=== PATIENT | male | born 1980 | race Two or more races ===

== ENCOUNTER 2024-01-21 07:55 | Outpatient (AMB) | payer OTHER, SELFPAY ==
--- NOTE | 2024-01-21 08:16 | MHC.OFFVIS ---
Intake Vital Signs 01/21/24 08:18 Height 5 ft 8 in Weight 160 lb 14.999 oz BMI 24.5 BP 140/87 H Blood Pressure Location Lt brachial Position Sitting Pulse 66 Intake Visit Reasons: Left upper Quad pain Intake Note: Hal presents in the office as a new patient for LUQ pains. CC: LuQ pains, he gets diarrhea, he states he was bleeding for a couple months but it has gone away. He states if he has to push hard then there will be a little bleeding. He gets lots of acid reflux and the medication does not help him. Allergies No Known Allergies Allergy (Verified 01/21/24 08:18) Medication List - Last Reconciled 01/21/24 by Shayy Crocker PA-C HPI HPI Comments History of Present Illness Details A 44 y/o male with burning in stomach a LUQ pain for about 4 years- a lot of heartburn-pantoprazole 40mg x 1 month- stopped - didn't work He is very frustrated he has had these pain going for many years never used finding the problem . He is here today with his He is unable to associate with anything specific pain comes and goes lasts a couple hours resolves without any remedy pain is not associated with eating or bowels Appetite very good Normal bowel He was seen in [facility]- had an EGD a few years ago he does not know where or plan He saw a GI doctor in [place]- he had an U/S- no details [facility] Surgical History History of esophagogastroduodenoscopy (EGD) Social History (Updated 01/21/24 @ 08:49 by Shayy Crocker PA-C) Household Members: Spouse and Children Alcohol intake: never Patient Tobacco Use Status: Never used Tobacco Current occupational status: employed Review of Systems Const All systems reviewed & are unremarkable except as noted in HPI and below Card Denies chest pain and Denies dyspnea Resp Denies dyspnea GI Reports abdominal pain, Reports bloating, Denies hematochezia, Denies constipation, Reports heartburn, Denies diarrhea and Denies nausea Physical Exam Vital Signs: Last Vital Signs Pulse 66 01/21/24 08:18 BP 140/87 H 01/21/24 08:18 BMI result Body Mass Index 24.5 Const General: cooperative, healthy appearing, comfortable, no acute distress and well developed Orientation/consciousness: patient oriented x3 Limitations: language barrier Eyes Sclerae: sclerae normal Resp Effort & Inspection: normal respiratory effort and able to speak in complete sentences Auscultation: clear to auscultation bilaterally, no rales, no rhonchi and no wheezes Cardio Rate: regular rate Rhythm: regular rhythm Heart sounds: S1 normal heart sound present and S2 normal heart sound present GI Palpation (GI): Soft to palpation and Tenderness to palpation present (GI) (diffuse) Auscultation: normal bowel sounds Rectal Exam - Male: Yes deferred Skin General skin exam: no rashes or lesions noted Neuro General: patient oriented x3 Extrem General: Yes full ROM Psych Appearance: grossly normal and well kempt Mental Status: mental status grossly normal Speech and movement: Normal speech and movement present Affect: Labile affect present Attitude: cooperative Thought process: Normal thought process present Thought content: Normal thought content present Insight: Good insight present (Psych) Judgement: Good judgement present (Psych) Assessment & Plan Assessment & Plan (1) LUQ abdominal pain: Comment: no assoc sx- reported nrml u/s Code(s): R10.12 - Left upper quadrant pain (2) Heartburn: Comment: Declines PPI, hp stool- if pos -try carafate Code(s): R12 - Heartburn (3) Poor historian: Comment: Limited detail previous GI follow-no records for review Code(s): Z78.9 - Other specified health status (4) Encounter for screening colonoscopy: Code(s): Z12.11 - Encounter for screening for malignant neoplasm of colon Plan: colon screen (5) Abdominal pain: Comment: Physical exam, Diffuse abdominal-a mild, nonspecific no rebound or guarding May be functional, versus musculoskeletal-will further evaluate neoplasm less likely ongoing for many years no associated symptoms Code(s): R10.9 - Unspecified abdominal pain Plan: Attempt to get a CT Plan EGD/ colon - MG CT abd / pelvis labs- HP- if positive tx carafate call with concerns Orders: Orders EGD/[place] Combo - GI Use Only Today R10.12 - Left upper quadrant pain, R12 - Heartburn, Z12.11 - Encounter for screening for malignant neoplasm of colon, Z78.9 - Other specified health status H pylori Ag Stool Today A04.8 - Other specified bacterial intestinal infections Complete Blood Count Auto Diff Today K52.9 - Noninfective gastroenteritis and colitis, unspecified Comprehensive Met. Panel Today K58.9 - Irritable bowel syndrome without diarrhea CT abdomen pelvis wo/w IV con Today R10.12 - Left upper quadrant pain, R10.9 - Unspecified abdominal pain Medications: New polyethylene glycol 3350 (Miralax) Take as directed by mouth the day before your procedure. 238 grams PO ONCE 1 day PRN 238 grams 0RF laxative effect sucralfate 1 g PO BID 4 weeks 56 tabs 0RF bisacodyl (Dulcolax (bisacodyl)) Day before procedure @ 12 noon Take 4 tablets by mouth followed by large glass of water 20 mg (4 x 5 mg) PO ONCE 1 day PRN 4 tabs 0RF colonoscopy prep Z12.11 - Encounter for screening for malignant neoplasm of colon barium sulfate 2%(w/v) (Readi-Cat 2) 450 mL PO DIRECTED 1 day 900 mL 0RF Patient Instructions: EGD/ colon CT abd / pelvis labs-cbc, cmp HP- if positive tx carafate call with concerns Coding Level of Care Code New Pt Level 4 (96048) Diagnoses LUQ abdominal pain R10.12 Heartburn R12 Poor historian Z78.9 Encounter for screening colonoscopy Z12.11 Abdominal pain R10.9 Time Spent (min) 30 Comment 2nd opinion
[2024-01-21 08:18] VITALS: BP 140/87; PULSE 66; BMI 24.5
== END 2024-01-21 09:21 | disposition home or self-care (01) ==
PROVIDERS: PCP Internal Medicine; Visit Provider Physician Assistant
DX: R10.12 Left upper quadrant pain (principal); R12 Heartburn; Z78.9 Other specified health status; Z12.11 Encounter for screening for malignant neoplasm of colon; R10.9 Unspecified abdominal pain
CPT/HCPCS: 99204

== ENCOUNTER 2024-01-21 07:55 | Outpatient (REF) | payer OTHER, SELFPAY ==
[2024-01-21 09:55] LABS: MANUAL DIFF FLAG NO
[2024-01-21 10:14] LABS: Basophils Percent Auto 0.7 % (0-2); Eosinophils Absolute Auto 0.3 X10*3/uL (0.0-0.4); Eosinophils Percent Auto 5.7 % (0-4); Hematocrit 44.3 % (42.0-52.0); Hemoglobin 15.1 g/dl (14.0-18.0); Imm Gran Abs Auto 0.02 X10*3/uL (0.00-0.03); Imm Gran Pct Auto 0.4 % (0.0-0.4); Lymphocytes Absolute Auto 1.5 X10*3/uL (1.2-4.9); Lymphocytes Percent Auto 32.4 % (20-40); Mean Corpuscular HGB Conc 34.1 g/dl (31.0-36.0); Mean Corpuscular Hemoglobin 28.7 pg (27.0-33.0); Mean Corpuscular Volume 84.1 fL (80.0-98.0); Mean Platelet Volume 9.9 fL (9.4-12.4); Monocytes Absolute Auto 0.3 X10*3/uL (0.1-1.2); Monocytes Percent Auto 6.4 % (2-11); Neutrophils Absolute Auto 2.5 x10*3/uL (2.0-8.3); Neutrophils Percent Auto 54.4 % (45-73); Platelet Count 202 X10*3/uL (160-400); Red Blood Count 5.27 X10*6/uL (4.60-5.80); Red Cell Distribution Width 12.4 % (11.0-16.0); White Blood Count 4.5 X10*3/uL (4.8-10.8)
[2024-01-21 11:02] LABS: Alanine Aminotransferase 34 U/L (0-40); Albumin Level 4.4 g/dL (3.5-5.0); Alkaline Phosphatase 115 U/L (39-117); Anion Gap 10 (12-20); Aspartate Amino Transferase 26 U/L (5-37); Bilirubin Total 0.6 mg/dL (0.0-1.0); Blood Urea Nitrogen 12 mg/dL (9-16); Calcium 9.2 mg/dL (8.4-10.2); Carbon Dioxide 27 mmol/L (22-29); Chloride 103 mmol/L (96-108); Estimated Glomerular Filt Rate > 60; Glucose Random 96 mg/dL (60-115); Potassium 4.1 mmol/L (3.3-5.1); Sodium 136 mmol/L (135-145); Total Protein 7.8 g/dL (6.5-8.0)
== END 2024-01-21 07:56 | disposition home or self-care (01) ==
LOC: HO.LAB 07:55
PROVIDERS: PCP Internal Medicine; Visit Provider Physician Assistant
DX: K52.9 Noninfective gastroenteritis and colitis, unspecified (principal)
CPT/HCPCS: 36415; 80053; 85025

== ENCOUNTER 2024-03-09 15:39 | Outpatient (REF) | payer OTHER, SELFPAY | END 2024-03-09 15:40 | disposition home or self-care (01) | LOC: HO.CT 15:39 | PROVIDERS: PCP Internal Medicine; Visit Provider Physician Assistant | DX: Z13.89 Encounter for screening for other disorder (principal) ==

== ENCOUNTER 2025-07-05 14:08 | Outpatient (AMB) | payer OTHER, SELFPAY ==
--- NOTE | 2025-07-05 14:24 | A.OFFVIS_ITS ---
Intake Visit Reasons: vasectomy consult Intake Note: pt presents for: vasectomy consult urology medications: none blood thinners: none Clerical Grader Required: Yes Accompanied by: Self / Same As Patient Allergies No Known Allergies Allergy (Verified 07/05/25 14:25) HPI Comments Details: Hal is a very pleasant Azeri-speaking male. He is a patient of Dr. Mcgrath. He is seen for the following urologic condition - anxiety about health - Vasectomy evaluation Vasectomy evaluation The patient presents for vasectomy consultation. He is currently He has fathered - 5 child, with a multiple partner. The youngest child is - 18 month. His partner is aware and permissive for a vasectomy Current form of control is none. Currently works as heavy construction The vasectomy may be complicated due to a history of no complicating issues, inguinal hernia repair, orchidopexy, history of orchitis, orchiectomy. Patient education has been provided via AUA video, via printed information, risks of failure, recovery time, bruising and potential pain syndrome have been stressed Discussion today focused on the presence of vasectomy and the risks, benefits and alternatives that are available. Vasectomy as intended as a permanent form of control. Printed information and literature was provided to the patient. Overall there is a one in 2500 failure rate. This can occur at any time after vasectomy. Risks were discussed highlighting hematoma, spermatocele, epididymal congestion, development of sperm antibodies, and development of chronic pain estimated between 1-5%. The procedure was reviewed in detail. Anatomical diagrams of the male genitalia were used to explain the location of the vas deferens. The vas deferens will be transected, the proximal end will be cauterized, a metal clip would be applied to separate the 2 vas deferens ends. It was explained the procedure will be done in the office and takes approximately 10-15 minutes. Less common problems that arise with vasectomy include hematoma, bleeding, allergic reaction to anesthetic, epididymal infection, epididymal congestion, scrotal discomfort, spermatic leak, spermatic granuloma and the possibility of antisperm antibodies. He understands these risks and wishes to proceed. Consent was signed at the office today. He also understands that it takes 12 weeks for sperm to fully clear the system. He will need to provide a semen sample at 12 weeks and if this is not clear a 2nd sample at 16 weeks. Medical clearance to stop using protection will only be provided if he satisfies published criteria for sperm clearance. [facility] Surgical History History of esophagogastroduodenoscopy (EGD) Social History (Updated 01/21/24 @ 08:49 by Shayy Crocker PA-C) Household Members: Spouse and Children Alcohol intake: never Patient Tobacco Use Status: Never used Tobacco Current occupational status: employed Review of Systems Const Denies chills and Denies fever(s) Card Reports no additional complaints and Denies syncope Resp Denies cough GI Denies abdominal pain and Denies heartburn Reports as per HPI and Denies change in libido Neuro Denies syncope Psych Denies change in libido Endo Denies change in libido Physical Exam Const General: cooperative, healthy appearing, comfortable and no acute distress Orientation/consciousness: patient oriented x3 HEENT Face and sinus: Yes normal facial exam Mouth: moist mucous membranes Neck Neck: Yes normal visual inspection, Yes full ROM and Yes trachea midline Chest Chest palpation & inspection: normal inspection of the chest Resp Effort & Inspection: normal respiratory effort, able to speak in complete sentences and no respiratory distress GI Inspection: Yes normal to inspection Back/Spine/Pelvis Cervical Spine: normal cervical lordosis Thoracic/Lumbar Spine: thoracic and lumbar spine normal to inspection Skin General skin exam: no rashes or lesions noted Neuro General: patient oriented x3, gait normal, tone normal and moves all extremities Extrem General: Yes normal to inspection and Yes capillary refill normal Assessment & Plan Assessment & Plan (1) Anxiety about health: Code(s): R45.89 - Other symptoms and signs involving emotional state Category: Medical Plan Plan vasectomy Medications: New diazepam Take medication after arrival at office 2 mg PO BID PRN 2 tabs 0RF anxiety 1 day R45.89 - Other symptoms and signs involving emotional state tramadol 50 mg PO Q8H PRN 7 tabs 0RF pain N43.3 - Hydrocele, unspecified, R45.89 - Other symptoms and signs involving emotional state Patient Instructions: This note is constructed using voice recognition software. While every effort has been made to ensure accuracy diving coach errors may have been included. Imaging studies, laboratory and physical exam results were discussed and reviewed in detail. No major barriers to patient understanding were identified. An opportunity to ask questions regarding the treatment plan was provided. All questions were answered. The patient expressed understanding and agreement with the above treatment plan. The patient is aware they should contact our office by phone for worsening of their current condition or the appearance of new urologic symptoms. Compliance is encouraged with any medications and followup testing that is ordered. It is a privilege to participate in the urologic care of your patient. If you have any questions or concerns regarding treatment for the above conditions, or other urologic issues, please do not hesitate to contact me. The office telephone contact is [phone]. Sincerely, Dr Sylvester Ferris MD, [facility] - Urology Compassionate Specialist Care for the Genitourinary System Coding Level of Care Code New Pt Level 4 (82236) Diagnoses Anxiety about health R45.89
--- OUTSIDE RECORDS SUMMARY | 2025-07-05 15:04 | XMS_ITS | Clinical Summary ---
Author Organization [employer] Address [address] [place] [address] Care Team Providers Care Audograph Operator Name Role Phone Fab Holland PA-C Primary Care Provider [phone] Allergies No known active allergies Social History Tobacco Use Types Packs/Day Years Used Date Smoking Tobacco: Never Assessed Sex and Gender Information Value Date Recorded Sex Assigned at Not on file Legal Sex Male 4:03 PM EST Gender Identity Not on file Sexual Orientation Not on file Last Filed Vital Signs Vital Sign Reading Time Taken Comments Blood Pressure 135/76 10/16/2022 6:02 PM EST Pulse 62 10/16/2022 6:02 PM EST Temperature 36.2 C (97.1 F) 10/16/2022 4:17 PM EST Respiratory Rate 19 10/16/2022 6:02 PM EST Oxygen Saturation 99% 10/16/2022 6:02 PM EST Inhaled Oxygen Concentration - - Weight 68 kg (150 lb) 10/16/2022 4:17 PM EST Height 172.7 cm (5' 8 ) 10/16/2022 4:17 PM EST Body Mass Index 22.81 10/16/2022 4:17 PM EST Plan of Treatment Health Maintenance Due Date Last Done Comments CT Colonography 1979 Colonoscopy 1979 Colorectal Cancer Screening 1979 FIT-DNA 1979 FIT 1979 FOBT 1979 Hepatitis C Screening 1979 Lipid Panel 1979 Sigmoidoscopy 1979 Annual Physical Exam 1997 COVID-19 Vaccine (2023-2 5 season) 2024 Influenza Vaccine (#1) 2025 Tdap and Td Vaccines Adult 08/02/2032 08/02/2022 HIB Vaccines Aged Out No longer eligi ble based on patient's age to complete this topic HPV Vaccines (No Doses Required) Completed Hepatitis A Vaccines Aged Out No long er eligible based on patient's age to complete this topic IPV Vaccines Aged Out No longer eligi ble based on patient's age to complete this topic Meningococcal Vaccine Aged Out No lex dom eligible based on patient's age to complete this topic Pneumococcal Vaccine: Peds ( 0 to 5 Yrs) and At-Risk Pts (6 to 49 Yrs) Aged Out No lo nger eligible based on patient's age to complete this topic RSV <20 Months Aged Out No longer terese gible based on patient's age to complete this topic Insurance [employer] Care Teams Audograph Operator Relationship Specialty Start Date End Date Fab Holland PA-C [address] [place] [address] PCP - General 10/16/22
--- OUTSIDE RECORDS SUMMARY | 2025-07-05 15:04 | XMS_ITS | Clinical Summary ---
Author Organization [facility] Address [address] [place] [address] Phone Care Team Providers Care Transformer Inspector Name Role Phone Viviana Mcgrath MD Primary Care Provider Allergies No known active allergies Medications No known medications Medical History Medical History Date Comments Epigastric pain DX:Epigastric pa in Left lower quadrant pain DX:Left lower quadrant pain Epigastric pain DX:Epigastric pa in Decreased appetite DX:Decreased appetite Left lower quadrant pain DX:Left lower quadrant pain Encounter for screening colonoscopy DX:Encounter for screening colonoscopy Social History Tobacco Use Types Packs/Day Years Used Date Smoking Tobacco: Never Smokeless Tobacco: Never Alcohol Use Standard Drinks/Week Comments Not Currently 0 (1 standard drink = 0.6 oz pur e alcohol) Sex and Gender Information Value Date Recorded Sex Assigned at Male 02/06/2025 5:52 PM EDT Legal Sex Male 4:32 AM EST Gender Identity Male 02/06/2025 5:52 PM EDT Sexual Orientation Not on file Obstetrics History Last Filed Vital Signs Vital Sign Reading Time Taken Comments Blood Pressure 153/90 02/06/2025 8:30 PM EDT Pulse 76 02/06/2025 8:45 PM EDT Temperature 36.9 C (98.4 F) 02/06/2025 5:50 PM EDT Respiratory Rate 18 02/06/2025 8:45 PM EDT Oxygen Saturation 97% 02/06/2025 8:45 PM EDT Inhaled Oxygen Concentration - - Weight 68 kg (150 lb) 02/06/2025 5:50 PM EDT Height 172.7 cm (5' 8 ) 02/06/2025 5:50 PM EDT Body Mass Index 22.81 02/06/2025 5:50 PM EDT Plan of Treatment Health Maintenance Due Date Last Done Comments Hepatitis B Vaccines (1 of 3 - 19+ 3-dose series) 1998 Cholesterol Screening (Lipid Panel) 10/19/2022 Colorectal Cancer Screening: Colonoscopy 10/19/2022 HIV Screening 10/19/2022 Hepatitis C Screening 10/19/2022 Social Influencers of Health Screening 10/19/2022 COVID-19 Vaccine (1 - season) 2024 Depression Screening 11/16/2024 Influenza Vaccine (#1) 2025 Hypertension/CHF/CAD Annual BMP Blood Test 02/06/2026 02/06/2025, 04/06/2023, 12/26/2022, Additional history exists DTaP,Tdap,and Td Vaccines (2 - Td or Tdap) 08/02/2032 08/02/2022 HIB Vaccines Aged Out No longer eligi ble based on patient's age to complete this topic HPV Vaccines Aged Out No longer eligi ble based on patient's age to complete this topic Hepatitis A Vaccines Aged Out No long er eligible based on patient's age to complete this topic IPV Vaccines Aged Out No longer eligi ble based on patient's age to complete this topic MMR Vaccines Aged Out No longer eligi ble based on patient's age to complete this topic Meningococcal ACWY Vaccine Aged Out N o longer eligible based on patient's age to complete this topic Meningococcal B Vaccine Aged Out No l onger eligible based on patient's age to complete this topic Pneumococcal Vaccine: Pediatrics (0 to 5 Years) and At-Risk Patients (6 to 49 Years) Aged Out No longer eligible based on patient's age to complete this topic RSV Immunization Patients Under 20 months Aged Out No longer eligible based on patient's age to complete this topic Varicella Vaccines Aged Out No longer eligible based on patient's age to complete this topic Procedures Procedure Name Priority Date/Time Associated Diagnosis Comments BASIC METABOLIC PANEL STAT 02/06/2025 6:10 PM EDT from Last 3 Months or Most Recently Relevant to Health Maintenance Results * Basic metabolic panel (02/06/2025 6:10 PM EDT) Sodium 137 135 - 145 mmol/L LAB CHEMISTRY METHOD 02/06/2025 6:32 PM [facility] Potassium 3.6 3.5 - 5.1 mmol/L LAB CHEMISTRY METHOD 02/06/2025 6:32 PM [facility] Chloride 103 98 - 107 mmol/L LAB CHEMISTRY METHOD 02/06/2025 6:32 PM [facility] CO2 28 24 - 32 mmol/L LAB CHEMISTRY METHOD 02/06/2025 6:32 PM [facility] Anion Gap 6 5 - 14 LAB CHEMISTRY METHOD 02/06/2025 6:32 PM [facility] Glucose 90 70 - 199 mg/dL LAB CHEMISTRY METHOD 02/06/2025 6:32 PM [facility] BUN 19 9 - 20 mg/dL LAB CHEMISTRY METHOD 02/06/2025 6:32 PM [facility] Creatinine 1.04 0.70 - 1.30 mg/dL LAB CHEMISTRY METHOD 02/06/2025 6:32 PM [facility] eGFR 90 >=60 mL/min/1. 73m2 LAB CHEMISTRY METHOD 02/06/2025 6:32 PM [facility] Comment:Calculation based on the Chronic Kidney Disease Epidemiology Collaboration (CKD-EPI) equation refit without adjustment for race. BUN/Creatinine Ratio 18.3 12.0 - 20.0 LAB CHEMISTRY METHOD 02/06/2025 6:32 PM [facility] Calcium 9.2 8.4 - 10.2 mg/dL LAB CHEMISTRY METHOD 02/06/2025 6:32 PM [facility] Blood Venous blood specimen / Unknown Venipuncture / Unknown 02/06/2025 6:10 PM EDT 02/06/2025 6:14 PM EDT us Westley Grace MD LAB BLOOD ORDERABLES Final Result [facility] [place] [place] [facility] [address] [place] [address], [place] [phone] from Last 3 Months or Most Recently Relevant to Health Maintenance Insurance [facility] [address] [place] [address] Care Teams Transformer Inspector Relationship Specialty Start Date End Date Viviana Mcgrath MD [address] [place] [address] [place] [id number] PCP - General 11/03/23
--- OUTSIDE RECORDS SUMMARY | 2025-07-05 15:04 | XMS_ITS ---
Author Name [facility] Organization Unknown Results Test Name/Text Value Interpretation Date Range Source D dimer DDU PPP-mCnc <150.0 ng/mL DDU Normal 02/07/2025 - 231 [facility] Troponin I SerPl HS-mCnc 4.0 ng/L Normal 02/07/2025 0 - 20 [facility] Troponin I SerPl HS-mCnc 3.0 ng/L Normal 02/06/2025 0 - 20 [facility] Creat SerPl-mCnc 1.04 mg/dL Normal 02/06/2025 0.7 - 1.3 C [facility] Potassium SerPl-sCnc 3.6 mmol/L Normal 02/06/2025 3.5 - [address] [facility] CO2 SerPl-sCnc 28.0 mmol/L Normal 02/06/2025 24 - 32 [facility] BUN/Creat SerPl 18.3 Normal 02/06/2025 12 - 20 [facility] eGFRcr SerPlBld CKD-EPI 2020 90.0 mL/min/1.73m2 Normal 02/06/2025 - [facility] Calcium SerPl-mCnc 9.2 mg/dL Normal 02/06/2025 8.4 - 10.2 [facility] Anion Gap SerPl-sCnc 6.0 Normal 02/06/2025 5 - 14 [facility] Glucose SerPl-mCnc 90.0 mg/dL Normal 02/06/2025 70 - 199 [facility] Sodium SerPl-sCnc 137.0 mmol/L Normal 02/06/2025 135 - 14 5 [facility] BUN SerPl-mCnc 19.0 mg/dL Normal 02/06/2025 9 - 20 [facility] Chloride SerPl-sCnc 103.0 mmol/L Normal 02/06/2025 98 - 1 07 [facility] Lymphocytes/leuk NFr Bld Auto 34.9 % Normal 02/06/2025 20 - 48 [facility] RBC # Bld Auto 5.29 M/mcL Normal 02/06/2025 4.7 - 6 [facility] Neutrophils # Bld Auto 2.8 K/mcL Normal 02/06/2025 1.8 - 7.8 [facility] Hct VFr Bld Auto 43.9 % Normal 02/06/2025 40 - 54 [facility] MCH RBC Qn Auto 28.7 pcg Normal 02/06/2025 25 - 33 [facility] Eosinophil # Bld Auto 0.24 K/mcL Normal 02/06/2025 0 - 0. 5 [facility] Platelet # Bld Auto 209.0 K/mcL Normal 02/06/2025 150 - 4 50 [facility] Eosinophil/leuk NFr Bld Auto 4.5 % Normal 02/06/2025 0 - 6 [facility] MCHC RBC Auto-mCnc 34.6 g/dL Normal 02/06/2025 32 - 36 [facility] Monocytes # Bld Auto 0.35 K/mcL Normal 02/06/2025 0 - 0.8 [facility] Lymphocytes # Bld Auto 1.85 K/mcL Normal 02/06/2025 1 - 3 .2 [facility] Monocytes/leuk NFr Bld Auto 6.6 % Normal 02/06/2025 2 - 12 [facility] MCV RBC Auto 83.0 FL Normal 02/06/2025 78 - 100 [facility] PMV Bld Auto 9.5 FL Normal 02/06/2025 7.4 - 11.4 [facility] RDW RBC Auto-Rto 12.5 % Normal 02/06/2025 12.1 - 17.7 [facility] Basophils # Bld Auto 0.03 K/mcL Normal 02/06/2025 0 - 0.2 [facility] Neutrophils/leuk NFr Bld Auto 52.8 % Normal 02/06/2025 44 - 74 [facility] Hgb Bld-mCnc 15.2 g/dL Normal 02/06/2025 13.5 - 18 [facility] WBC # Bld Auto 5.3 K/mcL Normal 02/06/2025 4 - 10.5 [facility] Basophils/leuk NFr Bld Auto 0.6 % Normal 02/06/2025 0 - 2 [facility] History of Medication Use Medication Directions Dispensed Refills Start Date End Date Stat aspirin chewable tablet 324 mg 324 mg, oral, Once, On Thu02/06/25 at 2000, For 1 dose 02/07/2025 02/07/2025 completed morphine injection 4 mg 4 mg, intravenous, Once, On Thu02/06/25 at 2000, For 1 dose 02/07/2025 02/07/2025 completed ondansetron (PF) (ZOFRAN) injection 4 mg 4 mg, intravenous, Once, On Thu02/06/25 at 2000, For 1 dose 02/07/2025 02/07/2025 completed hydrALAZINE (APRESOLINE) injection 10 mg 10 mg, intravenous, Once, On Thu02/06/25 at 1848, For 1 dose 02/06/2025 02/06/2025 completed ketorolac (TORADOL) injection 15 mg 15 mg, intravenous, Once, On Thu02/06/25 at 1849, For 1 dose 02/06/2025 02/06/2025 completed predniSONE (DELTASONE) 20 mg tablet Take 2 tablets (40 mg total) by mouth 1 (one) time each day for 5 days. Take with food in the morning 02/06/2025 active Problems Problem Status Onset Date Problem Type Date of Resolution Source Hypertension, unspecified type active EncounterDiagnosisAct [facility] Chest pain, unspecified type active EncounterDiagnosisAct [facility] Finger contusion active EncounterDiagnosisAct [facility] Subungual hematoma of digit of hand active EncounterDiagnosisAct CT [facility] Subungual hematoma of finger of left hand, initial encounter active 2024-08-[address] [facility] Encounters Encounter Type Encounter Reason Primary Diagnosis Location Date Ambulatory [facility] 04/03/2025 Emergency chest pain elevated blood pressure headache Chest pain, unspecified [facility] 02/06/2025 Ambulatory Contusion of finger Contusion of finger [facility] 08/19/2024 Emergency Contusion of unspecified finger without damage to nail, initial encounter Contusion of unspecified finger without damage to nail, initial encounter [facility] 08/17/2024 Emergency Procedure and treatment not carried out due to patient leaving prior to being seen by health care provider Procedure and treatment not carried out due to patient leaving prior to being seen by health care provider [facility] 07/05/2023 Emergency KIDNEY PAIN KIDNEY PAIN [facility] 04/09/2023 Emergency Unspecified abdominal pain [facility] 04/06/2023 Emergency Cough [place] T3 MOTION [facility] 01/20/2023 Emergency Left lower quadr ant pain [facility] 10/16/2022 Emergency Laceration with foreign body of right index finger without damage to nail, initial encounter [facility] 08/02/2022 Care Team Organization Name Specialty Phone Email Start Date End Da te [facility] provided,No Primary Care 04/03/2025 06/21/2025 [facility] Primary Care 02/14/2025 [facility] 02/07/2025 [facility] 08/19/2024 [facility] 07/06/2023 05/30/2025 [facility] 07/05/202306/17 [facility] provided No Primary Care 04/10/2023 06/21/2025 [facility] No provided Primary Care 04/09/2023 023 [place] [facility] PCP,No Primary Care 01/21/2023 [facility] 10/16/2022 12/0 11/2021 [facility] 10/16/2022 [facility] NO PCP Primary Care 08/02/2022 08/02/2022 [facility] 08/02/2022
--- OUTSIDE RECORDS SUMMARY | 2025-07-05 15:04 | XMS_ITS | Clinical Summary ---
Author Organization [facility] Address [address] [place] [address] Care Team Providers Care Back Tender Insulation Board Name Role Phone Pcp, No Primary Care Provider Unavailabl e Allergies No known active allergies Medications ibuprofen (MOTRIN) 600 MG tablet Take 1 tablet (600 mg total) by mouth 4 times daily (every 6 hours) as needed for mild pain (pain). 20 tablet 04/06/2023 Active cephalexin (KEFLEX) 500 MG capsule Take 1 capsule (500 mg total) by mouth 3 (three) times a day. 30 capsule 04/06/2023 Active Immunizations Immunization Administration Dates Next Due Tdap 08/02/2022 Social History Tobacco Use Types Packs/Day Years Used Date Smoking Tobacco: Never Smokeless Tobacco: Never Tobacco Cessation:Counseling Given: Not Answered Alcohol Use Standard Drinks/Week Comments Not Currently 0 (1 standard drink = 0.6 oz pur e alcohol) Sex and Gender Information Value Date Recorded Sex Assigned at Male 01/20/2023 11:04 PM EST Legal Sex Male 3:26 PM EDT Gender Identity Male 01/20/2023 11:04 PM EST Sexual Orientation Heterosexual (straight) 01/20 11:04 PM EST Last Filed Vital Signs Vital Sign Reading Time Taken Comments Blood Pressure 154/71 04/06/2023 11:07 PM EDT Pulse 65 04/06/2023 11:07 PM EDT Temperature 36.9 C (98.4 F) 04/06/2023 11:07 PM EDT Respiratory Rate 18 04/06/2023 11:07 PM EDT Oxygen Saturation 99% 04/06/2023 11:07 PM EDT Inhaled Oxygen Concentration - - Weight 69.4 kg (153 lb) 04/06/2023 8:16 PM EDT Height 172.7 cm (5' 8 ) 08/02/2022 9:51 AM EDT Body Mass Index 23.26 08/02/2022 9:51 AM EDT Plan of Treatment Health Maintenance Due Date Last Done Comments Hepatitis C Virus Screening 1979 HIV Screening 1992 Hepatitis B Vaccines (1 of 3 - 19+ 3-dose series) 1998 Colonoscopy 2024 COVID-19 Vaccine (1 - 2023-2 5 season) 2024 Influenza Vaccine 06/16/2025 DTaP/Tdap/Td Vaccines (2 - T d or Tdap) 08/02/2032 08/02/2022 Pneumococcal Vaccine: Pediat abby (0-5 Years) and At-Risk Patients (6 to 49 Years) Aged Out No longer eligible b ased on patient's age to complete this topic Insurance [facility] Care Teams Back Tender Insulation Board Relationship Specialty Start Date End Date Pcp, No PCP - General General Medicine 08/02/22
--- OUTSIDE RECORDS SUMMARY | 2025-07-05 15:04 | XMS_ITS | Clinical Summary ---
Author Organization [address] Address [address] [place], [place] [id number] Care Team Providers Care Byproducts Extractor Name Role Phone No, Pcp (Do Not Change Name) Primary Care Provid er Unavailable Allergies No known active allergies Medications valACYclovir (VALTREX) 1000 mg tablet Take 0.5 tablets (500 mg total) by mouth 3 times a day. 02/11/2024 Active Active Problems Problem Noted Date Diagnosed Date Subungual hematoma of finger of left hand, initial encounter 08/19/2024 Family History Relation Name Status Comments Father Alive Mother Alive Social History Tobacco Use Types Packs/Day Years Used Date Smoking Tobacco: Never Tobacco Cessation:Counseling Given: Not Answered Alcohol Use Standard Drinks/Week Comments Never 0 (1 standard drink = 0.6 oz pur e alcohol) Sex and Gender Information Value Date Recorded Sex Assigned at Not on file Legal Sex Male 8:38 AM EDT Gender Identity Not on file Sexual Orientation Not on file Last Filed Vital Signs Vital Sign Reading Time Taken Comments Blood Pressure 172/92 08/19/2024 10:51 AM EDT Pulse 71 08/19/2024 10:51 AM EDT Temperature 36.8 C (98.3 F) 08/19/2024 10:51 AM EDT Respiratory Rate 16 08/19/2024 10:51 AM EDT Oxygen Saturation 98% 08/19/2024 10:51 AM EDT Inhaled Oxygen Concentration - - Weight 70.3 kg (155 lb) 08/19/2024 10:51 AM EDT Height 175.3 cm (5' 9 ) 08/19/2024 10:51 AM EDT Body Mass Index 22.89 08/19/2024 10:51 AM EDT Plan of Treatment Health Maintenance Due Date Last Done Comments HIV screening 1992 Hepatitis C screening 1997 Lipid disorder screening 2019 Colon cancer screening, Colonoscopy 2024 Diabetes screening 2024 Covid-19 vaccine series ( season) 2024 Influenza vaccine 07/17/2025 Tetanus adult (Td q 10,TDAP once) 08/02/2032 022 RSV Immunization (1 - 1-dose 75+ series) 2054 Meningococcal Vaccine Aged Out No lex dom eligible based on patient's age to complete this topic Pneumococcal Vaccine (2 - 49 years) Aged Out No longer eligible b ased on patient's age to complete this topic Care Teams Byproducts Extractor Relationship Specialty Start Date End Date No, Pcp (Do Not Change Name) PCP - General 08/19/24
--- OUTSIDE RECORDS SUMMARY | 2025-07-05 15:04 | XMS_ITS | Clinical Summary ---
Author Organization [facility] Address [address] [place] [address] Care Team Providers Care Strategic Planning Specialist Name Role Phone Unavailable Primary Care Provider Unavailabl e Allergies No known active allergies Medications Medication Sig Dispensed Refills Start Date End Date Status ibuprofen 600 MG tablet Take 1 tablet (600 mg total) by mouth every 6 (six) hours as needed for pain. 30 tablet 0 09/19/2022 Active butalbital-acetaminop hen-caffeine 50-325-40 MG per tablet Take 1 tablet by mouth every 4 (four) hours as needed for pain. 10 tablet 0 12/26/2022 Active oxyCODONE-acetaminoph en (PERCOCET) 5-325 MG per tablet Take 1 tablet by mouth every 6 (six) hours as needed. 12 tablet 0 08/17/2024 Active Active Problems No known active problems Social History Tobacco Use Types Packs/Day Years Used Date Smoking Tobacco: Never Smokeless Tobacco: Never Alcohol Use Standard Drinks/Week Comments Not Currently 0 (1 standard drink = 0.6 oz pur e alcohol) Sex and Gender Information Value Date Recorded Sex Assigned at Male 07/27/2022 5:58 PM EDT Gender Identity Male 07/27/2022 5:58 PM EDT Sexual Orientation Not on file Job Start Date Occupation Industry Not on file Not on file Not on file Last Filed Vital Signs Vital Sign Reading Time Taken Comments Blood Pressure 173/99 08/17/2024 4:48 PM EDT Pulse 66 08/17/2024 4:48 PM EDT Temperature 36.5 C (97.7 F) 08/17/2024 4:48 PM EDT Respiratory Rate 18 08/17/2024 4:48 PM EDT Oxygen Saturation 98% 08/17/2024 4:48 PM EDT Inhaled Oxygen Concentration - - Weight 71.7 kg (158 lb) 08/17/2024 4:48 PM EDT Height 175.3 cm (5' 9 ) 08/17/2024 4:48 PM EDT Body Mass Index 23.33 08/17/2024 4:48 PM EDT Plan of Treatment Health Maintenance Due Date Last Done Comments Hepatitis B Vaccines (1 of 3 - 3-dose series) 1979 Hepatitis C Screening 1979 COVID-19 Vaccine (#1) 1979 Depression Screening 1991 Preventative Health Evaluation 1997 Colon Cancer Screening (Colonoscopy) 2024 Influenza Vaccine (#1) 2025 DTap / Tdap / Td (2 - Td or Tdap) 08/02/2032 022 Pneumococcal Vaccine Aged Out No long er eligible based on patient's age to complete this topic RSV Ped < 20 months Aged Out No longe r eligible based on patient's age to complete this topic Insurance Payer Benefit Plan / Group Subscriber ID Effective Dates Phone Address [facility] [id number] 2022-Present [address] [facility] [address] [place] [id number] [place] [id number] Hal Aguilera Personal/Family Self 1980 [place] [id number]
== END 2025-07-05 14:54 | disposition home or self-care (01) ==
LOC: HO.HUSH 14:09
PROVIDERS: PCP Internal Medicine; Visit Provider Urology
DX: R45.89 Other symptoms and signs involving emotional state (principal)
CPT/HCPCS: 99204

== ENCOUNTER 2025-09-05 15:32 | Outpatient (AMB) | payer OTHER, SELFPAY ==
--- NOTE | 2025-09-05 15:37 | A.OFFVIS_ITS ---
Intake Visit Reasons: vasectomy Intake Note: pt presents for: vasectomy urology medications: none blood thinners: none Print Operator Required: Yes Accompanied by: Self / Same As Patient Allergies No Known Allergies Allergy (Verified 10/18/25 15:53) HPI Comments Details: Hal is a very pleasant Bulgarian-speaking male. He is a patient of Dr. Mcgrath. He is seen for the following urologic condition - anxiety about health - Vasectomy procedure Vasectomy procedure The patient presents for vasectomy procedure. He is currently He has fathered - 5 child, with a multiple partner. The youngest child is - 18 month. His partner is aware and permissive for a vasectomy Current form of control is none. Currently works as heavy construction [employer] Surgical History History of esophagogastroduodenoscopy (EGD) Social History Household Members: Spouse and Children Alcohol intake: never Patient Tobacco Use Status: Never used Tobacco Current occupational status: employed Office Procedures Vasectomy Details: Preoperative diagnosis: Anxiety regarding Postoperative diagnosis: Anxiety regarding unplanned Procedure: Bilateral vasectomy Informed consent had been completed. Preoperative and postoperative instructions were provided to the patient. The patient has transportation home identified at the completion of the procedure. Anti-anxiolytic prescription medication had been taken after consent verification and all questions answered. A limited amount of pain medication was also provided. The penis was elevated using a rubber band that was attached to the patient's shirt. Both vasa were palpated through the skin using a 3 finger technique and the penoscrotal junction was prepped with Betadine. After Betadine application the left vas was elevated using a 3 finger grasping technique. 1% lidocaine was used to create a subdermal bubble. Further anesthetic was then advanced using the 25-gauge needle along the vasa in a proximal fashion. Approximately 2 minutes were allowed to for local anesthetic uptake. Using the sharp spreading instrument the scrotal skin was spread longitudinally in line with the vasa until the subdermal layer had been divided. The vasa was then elevated from the scrotum using a ring clamp. Care was taken to elevate the superior portion of the vasa by rotating the ring clamp in a caudad direction. The battery powered cautery was used to divide the vasal sheath in a longitudinal direction on the exposed vasa and to strip the vasal sheath from the vasa. The sharp spreading instrument was used to further expose the vas within the vasal sheath. A 2nd narrower ring clamp was placed on the exposed vas and used to lift the vas from the vasal sheath. The cautery was used to divide vasal attachments and allow full exposure of a small loop of vasa. The sharp spreading instrument was then used to create a tunnel under the vasa and spread to allow the blood vessels of the vasa to retract from the vasa. A mosquito clamp was placed on the proximal portion of the vas. The battery-p owered cautery was used to make a partial division in the proximal vas and then inserted in order to cauterize the proximal end of the vas. This was then cut and allowed to retract into the vasal sheath. The mosquito was then used to twist the vasa 180 degrees creating a fascial interposition as the proximal portion of the vas retracted in the vasal sheath. Using a 4-0 chromic suture the fascial interposition was sutured closed. The distal portion of the vas was then cut in order to obtain a segment of vasa. An open distal vas is preferred for minimizing postprocedure pain. The vasa were allowed to retract back into the scrotum. A small snap was then used to approximate the skin edges and allow hemostasis without placement of a suture. A similar procedure was repeated on the right side. He tolerated the procedure well. Triple antibiotic was applied. A gauze was applied. An ice pack was applied to assist with minimizing swelling. Postoperative instructions were confirmed. He understands the need to continue to use control methods. A semen sample should be brought for inspection under the microscope in 10-12 weeks. CPT 76288 Vasectomy performed by: Sylvester Ferris Informed consent given: Yes Informed consent signed: Yes Time out checklist: patient, procedure, site marked/identified, positioning of patient, supplies available, allergies confirmed and team agrees on procedure Anesthetic used: other Specimens: vas segments not sent to pathology 95145 - Vasectomy Office Meds lidocaine (PF) 10 mg/mL (1 %) injection solution Performing Provider: Sylvester Ferris MD [facility] [place] [facility] Documented (not given) by: Sylvester Ferris MD on 10/22/25 22:14 Dose Route Admin Location Dispensed Lot Number Expiration Date NDC Cloud Automation Tester 2 mL Infiltration mL Total Dispensed Waste n/a n/a Assessment & Plan Assessment & Plan (1) Anxiety about health: Code(s): R45.89 - Other symptoms and signs involving emotional state Category: Medical Plan Three-month follow-up semen analysis Orders: Orders AMB Vasectomy 09/05/25 R45.89 - Other symptoms and signs involving emotional state Medications: New lidocaine (PF) 2 mL Infiltration ONCE 2 mL 0RF R45.89 - Other symptoms and signs involving emotional state oxycodone-acetaminophen 5-325 mg (Percocet) Partial Fill upon patient request. 1 tab PO Q8H PRN 5 tabs 0RF pain 7 days R45.89 - Other symptoms and signs involving emotional state, N50.812 - Left testicular pain Patient Instructions: This note is constructed using voice recognition software. While every effort has been made to ensure accuracy loading inspector errors may have been included. Imaging studies, laboratory and physical exam results were discussed and reviewed in detail. No major barriers to patient understanding were identified. An opportunity to ask questions regarding the treatment plan was provided. All questions were answered. The patient expressed understanding and agreement with the above treatment plan. The patient is aware they should contact our office by phone for worsening of their current condition or the appearance of new urologic symptoms. Compliance is encouraged with any medications and followup testing that is ordered. It is a privilege to participate in the urologic care of your patient. If you have any questions or concerns regarding treatment for the above conditions, or other urologic issues, please do not hesitate to contact me. The office telephone contact is [phone]. Sincerely, Dr Sylvester Ferris MD, [facility] - Urology Compassionate Specialist Care for the Genitourinary System Coding Level of Care Code Procedure Only Diagnoses Anxiety about health R45.89 CPT Codes Office Procedure - CPT: 79543 - Vasectomy ([id number])
--- OUTSIDE RECORDS SUMMARY | 2025-09-05 20:37 | XMS_ITS | Encounter Summary ---
Author Organization [employer] Address [address] [place] [address] Care Team Providers Care Oven Tender Bagels Name Role Phone Fab Holland PA-C Primary Care Provider [phone] Encounter Details Date Type Department Care Team (Late st Contact Info) Description 10/16/2022 Procedure Pass [facility] [address] [place] [id number] Social History Tobacco Use Types Packs/Day Years Used Date Smoking Tobacco: Never Assessed Sex and Gender Information Value Date Recorded Sex Assigned at Not on file Legal Sex Male 4:03 PM EST Gender Identity Not on file Sexual Orientation Not on file COVID-19 Exposure Response Date Recorded In the last 10 days, have yo u been in contact with someone who was confirmed or suspected to have Coronavirus/COVID-19? No / Unsure 10/16/2022 4:03 PM EST documented as of this encounter Plan of Treatment Not on file documented as of this encounter Visit Diagnoses Not on filedocumented in this encounter Care Teams Oven Tender Bagels Relationship Specialty Start Date End Date Fab Holland PA-C [address] [place] [address] PCP - General 10/16/22 documented as of this encounter
--- OUTSIDE RECORDS SUMMARY | 2025-09-05 20:37 | XMS_ITS | Clinical Summary ---
Author Organization [facility] Address [address] [place] [address] Phone Care Team Providers Care Treatment Counselor Name Role Phone Viviana Mcgrath MD Primary Care Provider [phone] Allergies No known active allergies Medications No [...] Health Maintenance Due Date Last Done Comments Colorectal Cancer Screening: Colonoscopy 1979 Hepatitis B Vaccines (1 of 3 - 19+ 3-dose series) 1998 Cholesterol Screening (Lipid Panel) 10/19/2022 HIV Screening 10/19/2022 Hepatitis C Screening 10/19/2022 Social Influencers of Health Screening 10/19/2022 Depression Screening 11/16/2024 COVID-19 Vaccine (1 - 2023-2 5 season) 2025 Influenza Vaccine (#1) 2025 DTaP,Tdap,and Td Vaccines (2 - Td or Tdap) 08/02/2032 08/02/2022 RSV Immunization Adult Patie nts (1 - 1-dose 75+ series) 2054 HIB Vaccines Aged Out No longer eligi [...] age to complete this topic Pneumococcal Vaccine: Pediat rics (0 to 5 Years) and At-Risk Patients (6 to 49 Years) Aged Out No longer eligi ble based on patient's age to complete this topic RSV Immunization Patients Un malik 20 months Aged Out No longer eligible b ased on patient's age to complete this topic Varicella Vaccines Aged Out No longer eligible based on patient's age to complete this topic Insurance summer [address] Care Teams Treatment Counselor Relationship Specialty Start Date End Date Viviana Mcgrath MD [address] [place] [address] [place] [address] PCP - General 11/03/23
--- OUTSIDE RECORDS SUMMARY | 2025-09-05 20:37 | XMS_ITS | Clinical Summary ---
Author Organization [address] Address [address] [place], [place] [phone] Care Team Providers Care University Relations Recruiter Name Role Phone No, Pcp (Do Not [...] cancer screening, Colonoscopy 2024 Diabetes screening 2024 Influenza vaccine 06/16/2025 Covid-19 vaccine series ( season) 2025 Tetanus adult (Td q 10,TDAP once) 08/02/2032 022 RSV Immunization (1 - 1-dose 75+ series) 2054 Meningococcal B Vaccine Aged Out No l onger eligible based on patient's age to complete this topic Meningococcal Vaccine Aged Out No lex dom eligible based on patient's age to complete this topic Pneumococcal Vaccine (2 - 49 years) Aged Out No longer eligible b ased on patient's age to complete this topic Care Teams University Relations Recruiter Relationship Specialty Start Date End Date No, Pcp (Do Not Change Name) PCP - General 08/19/24
--- OUTSIDE RECORDS SUMMARY | 2025-09-05 20:37 | XMS_ITS | Clinical Summary ---
Author Organization [facility] Address [address] [place] [address] Care Team Providers Care Medical Sales Consultant Name Role Phone Fab Holland PA-C Primary Care Provider Allergies No known active allergies Social History [...] 1980 Annual Physical Exam 1997 COVID-19 Vaccine (2024-2 6 season) 2025 Influenza Vaccine (#1) 2025 Tdap and Td [...] this topic Insurance [employer] Care Teams Medical Sales Consultant Relationship Specialty Start Date End Date Fab Holland PA-C [address] [place] [address] PCP - General 10/16/22
--- OUTSIDE RECORDS SUMMARY | 2025-09-05 20:37 | XMS_ITS | Clinical Summary ---
Author Organization [facility] Address [address] [place] [address] Care Team Providers Care Master Certified Rv Technician Name Role Phone Unavailable Primary Care Provider [...] Group Subscriber ID Effective Dates Phone Address [facility] [id number] 2022-Present 1 [facility] [address] [place] [phone] [place] [id number] Hal Aguilera Personal/Family Self 1980 summer [place] [id number]
--- OUTSIDE RECORDS SUMMARY | 2025-09-05 20:37 | XMS_ITS | Clinical Summary ---
Author Organization [facility] Address [address] [place] [address] Care Team Providers Care Qa Test Lead Name Role Phone Pcp, No Primary Care [...] - 19+ 3-dose series) 1998 Colonoscopy 2024 Influenza Vaccine 06/16/2025 COVID-19 Vaccine (1 - 2023-2 5 season) 2025 DTaP/Tdap/Td Vaccines (2 - T d or Tdap) 08/02/2032 08/02/2022 Pneumococcal Vaccine: Pediat abby (0-5 Years) and At-Risk Patients (6 to 49 Years) Aged Out No longer eligible b ased on patient's age to complete this topic Insurance [facility] Care Teams Qa Test Lead Relationship Specialty Start Date End Date Pcp, No PCP - General General Medicine 08/02/22
== END 2025-09-05 16:50 | disposition home or self-care (01) ==
LOC: HO.HUSH 15:32
PROVIDERS: PCP Internal Medicine; Visit Provider Urology
DX: Z30.2 Encounter for sterilization (principal)
CPT/HCPCS: 55250

== ENCOUNTER → 2025-09-05 15:32 | Outpatient (BNVA) | payer OTHER, SELFPAY | PROVIDERS: PCP Internal Medicine; Visit Provider Urology | DX: Z30.2 Encounter for sterilization (principal); F41.8 Other specified anxiety disorders | CPT/HCPCS: 55250 ==

== ENCOUNTER 2025-10-16 09:48 | Emergency (ER) | payer OTHER, SELFPAY ==
--- NOTE | ~2025-10-16 | US_ITS ---
EXAMINATION: US SCROTUM CLINICAL INFORMATION: Right scrotal pain and swelling. COMPARISON: None available. TECHNIQUE: A sonogram of the scrotum was performed assessing reinoso-scale appearance and color Doppler flow. Spectral Doppler analysis of the arterial and venous flow were performed in the testes bilaterally. FINDINGS: There is no scrotal skin thickening. RIGHT: Right testicle measures 4.6 cm, volume 22 mL. No focal testicular parenchymal lesions are visualized. Small echogenic appendage is noted the superior pole of the testicle. It demonstrates blood flow on color Doppler. Spectral Doppler analysis of the arterial and venous flow is present in the right testis. Right epididymal head is normal in size. There is minimally complex moderate sized hydrocele. There is a 4 x 5 mm simple exophytic cystic structure near the head of the epididymis. Right epididymal Doppler flow is documented. LEFT: Left testicle measures 4.9 cm, volume 18 mL. No focal testicular parenchymal lesions are visualized. Spectral Doppler analysis of the arterial and venous flow is present in the left testis. Left epididymal head is normal in size. No left hydrocele or varicocele is seen. Left epididymal Doppler flow is present US/US scrotum doppler IMPRESSION: Moderate size mildly complex hydrocele is present on the right. 5 mm exophytic cyst in the region of the head of the epididymis could represent an epididymal head cyst or other nonaggressive cyst. Electronically signed by: Cristopher Burton MD 10/16/2025 11:26 AM EDELMIRA
--- NOTE | ~2025-10-16 | US_ITS ---
EXAMINATION: US SCROTUM CLINICAL INFORMATION: Right scrotal pain and swelling. COMPARISON: None available. TECHNIQUE: A sonogram of the scrotum was performed assessing reinoso-scale appearance and color Doppler flow. Spectral Doppler analysis of the arterial and venous flow were performed in the testes bilaterally. FINDINGS: There is no scrotal skin thickening. RIGHT: Right testicle measures 4.6 cm, volume 22 mL. No focal testicular parenchymal lesions are visualized. Small echogenic appendage is noted the superior pole of the testicle. It demonstrates blood flow on color Doppler. Spectral Doppler analysis of the arterial and venous flow is present in the right testis. Right epididymal head is normal in size. There is minimally complex moderate sized hydrocele. There is a 4 x 5 mm simple exophytic cystic structure near the head of the epididymis. Right epididymal Doppler flow is documented. LEFT: Left testicle measures 4.9 cm, volume 18 mL. No focal testicular parenchymal lesions are visualized. Spectral Doppler analysis of the arterial and venous flow is present in the left testis. Left epididymal head is normal in size. No left hydrocele or varicocele is seen. Left epididymal Doppler flow is present US/US scrotum IMPRESSION: Moderate size mildly complex hydrocele is present on the right. 5 mm exophytic cyst in the region of the head of the epididymis could represent an epididymal head cyst or other nonaggressive cyst. Electronically signed by: Cristopher Burton MD 10/16/2025 11:26 AM EDELMIRA
[2025-10-16 09:55] VITALS: BP 168/109; PULSE 76; RESP 18; TEMP 36.6; O2SAT 98; BMI 22.9
--- NOTE | 2025-10-16 10:01 | ED.MALEGU ---
HPI - Male Genitourinary General Chief complaint: Urogenital-Male Stated complaint: seen for test swelling at [facility], still swollen Time Seen by Provider: 10/16/25 11:21 Source: patient Mode of arrival: ambulatory Limitations: no limitations History of Present Illness ED Provider: Dr. Vicente HPI Narrative: 45-year-old male presented hospital today for right testicular swelling. This has been going on for couple of weeks now. Patient was diagnosed with hydrocele at [facility] pre presented due to worsening of the swelling and pain. Pain is radiating up to his right thigh into his right lower quadrant. The patient had history of vasectomy with Dr. Ferris here. Patient stated that he does have hydrocele history in the past prior to the vasectomy. Related Data Previous Rx's ?Medication ?Instructions ?Recorded barium sulfate 2 % (w/v) oral 450 ml PO DIRECTED 1 day #900 mL 01/21/24 suspension (Readi-Cat 2) bisacodyl 5 mg tablet,delayed 20 mg (4 x 5 mg) PO ONCE PRN 01/21/24 release (Dulcolax (bisacodyl)) colonoscopy prep 1 day #4 tabs polyethylene glycol 3350 17 238 g PO ONCE PRN laxative effect 01/21/24 gram/dose oral powder (Miralax) 1 day #238 grams sucralfate 1 gram tablet 1 g PO BID 4 weeks #56 tabs 01/21/24 diazepam 2 mg tablet 2 mg PO BID PRN anxiety 1 day #2 07/05/25 tabs tramadol 50 mg tablet 50 mg PO Q8H PRN pain #7 tabs 07/05/25 oxycodone-acetaminophen 5 mg-325 1 tab PO Q8H PRN pain 7 days #5 09/05/25 mg tablet (Percocet) tabs oxycodone 5 mg tablet 5 mg PO Q8H PRN pain #14 tabs 10/16/25 Allergies Allergy/AdvReac Type Severity Reaction Status Date / Time No Known Allergies Allergy Verified 10/16/25 09:59 Review of Systems Review of Systems: Pertinent review of systems as mentioned in HPI. All other system otherwise negative. [facility] Past Medical History [facility] Narrative: Medical history as mentioned in [facility] Surgical History History of esophagogastroduodenoscopy (EGD) Social History Social History (Updated 01/21/24 @ 08:49 by Shayy Crocker PA-C) Household Members: Spouse and Children Alcohol intake: never Patient Tobacco Use Status: Never used Tobacco Current occupational status: employed Physical Exam Exam: Exam: General: Pleasant, no distress, interacting appropriately Head: Normacephalic, atraumatic ENT: oral mucosa moist, neck supple, no tracheal deviation Cardiovascular: regular rate, regular rhythm, no murmurs, rubbing, gallops Respiratory: CTAB, no wheeze, rales, rhonchi : Large right scrotal swelling identified on exam. Appears to be tense, no sign of erythema or infection Skin: Warm and dry Vital Signs: Vital Signs: Last Vital Signs Temp 98 F 10/16/25 09:55 Pulse 70 10/16/25 14:25 Resp 14 10/16/25 14:25 BP 132/74 10/16/25 14:25 Pulse Ox 97 10/16/25 14:25 O2 Del Method Room Air 10/16/25 14:25 BMI result Body Mass Index 22.9 Course Course Course Narrative: This is a rapid medical exam performed by Bibi Mancilla NP: Additional HPI, ROS, PE not included below will be deferred to primary provider. Patient is a 45-year-old male with known hydrocele presenting to the emergency department complaining of increased pain and swelling to his right testicle. States symptoms began 3 weeks ago. Seen at [facility] on the and diagnosed with hydrocele, given oxycodone. Patient states the pain and swelling has worsened. He called Dr. Ferris as he is supposed to have surgery and was advised to come to the ED. Plan: UA, CT NG urine, U/S Medications Administered Discontinued Medications Generic Name Dose Route Start Last Admin Trade Name Freq PRN Reason Stop Dose Admin Acetaminophen 975 mg 10/16/25 12:10 10/16/25 12:44 Acetaminophen 325 Mg Tablet PO 10/16/25 12:11 975 mg ONCE ONE Administration Ibuprofen 400 mg 10/16/25 12:10 10/16/25 12:43 Ibuprofen 400 Mg Tablet PO 10/16/25 12:11 400 mg ONCE ONE Administration Medical Decision Making Medical Decision Making MDM Narrative: 45-year-old male presented hospital today for right-sided testicular pain. Patient has right testicular swelling. Ultrasound shows signs of hydrocele. No signs of testicular torsion. Good blood flow to right testicle. No sign of infection or erythema on exam. Patient's gonorrhea and chlamydia test is negative. I did reach out to Dr. Ferris and discuss the case with him. He has evaluated the patient recommended outpatient follow up in clinic. For scheduling of procedure. Patient will be discharged with a course of oxycodone take as needed for pain. Differential Diagnosis Differential Diagnoses: The differential diagnosis associated with the presentation includes Epididymitis, testicular torsion, hydrocele Consult Healthcare Provider Management of the patient was discussed with: Petroleum Sampler (Dr. Ferris (Urologist) ) Lab Data MDM Lab Attestation statement: I reviewed the patient's lab results. Labs: Lab Results 10/16/25 Range/Units 10:12 Urine Color Yellow Urine Appearance Clear Urine pH 5.5 (5.0-9.0) Ur Specific [place] >= 1.030 H (1.005-1.025) Urine Protein 30 (1+) H (Neg-Trace) mg/dL Urine Glucose (UA) Negative (Negative) mg/dL Urine Ketones Trace (Negative) mg/dL Urine Blood Negative (Negative) Urine Nitrite Negative (Negative) Ur Leukocyte Esterase Negative (Negative) Urine RBC 0-2 (0-2) /HPF Urine WBC 0-5 (0-5) /HPF Ur Squamous Epith Cells 0-2 (0-2) /HPF Urine Bacteria None Seen (None Seen) Hyaline Casts 0-2 (0-2) /LPF Ur N gonorrhoeae DNA (PCR) NOT DETECTED (Not Detect.) Ur Chlamydia DNA (PCR) NOT DETECTED (Not Detect.) Independent Interpretation I performed an independent interpretation of an: Ultrasound Radiology Impression Discussion of test interpretation with radiology: I have reviewed the radiologist's reading. Discharge Plan Discharge Clinical Impression: Acute hydrocele Patient Disposition: Home, Self-Care Instructions: Scrotal Pain (ED) Prescriptions: New oxycodone 5 mg tablet 5 mg PO Q8H PRN (Reason: pain) Qty: 14 0RF Rx Instructions: Partial Fill upon patient request. No Action bisacodyl [Dulcolax (bisacodyl)] 5 mg tablet,delayed release (DR/EC) 20 mg PO ONCE PRN (Reason: colonoscopy prep) 1 Days Qty: 4 0RF Rx Instructions: Day before procedure @ 12 noon Take 4 tablets by mouth followed by large glass of water polyethylene glycol 3350 [Miralax] 17 gram/dose powder 238 g PO ONCE PRN (Reason: laxative effect) 1 Days Qty: 238 0RF Rx Instructions: Take as directed by mouth the day before your procedure. sucralfate 1 gram tablet 1 g PO BID 28 Days Qty: 56 0RF Readi-Cat 2 2 % (w/v) suspension 450 ml PO DIRECTED 1 Days Qty: 900 0RF lidocaine (PF) 10 mg/mL (1 %) solution 2 ml Infiltration ONCE Qty: 2 0RF oxycodone-acetaminophen [Percocet] 5-325 mg tablet 1 tab PO Q8H PRN (Reason: pain) 7 Days Qty: 5 0RF Rx Instructions: Partial Fill upon patient request. tramadol 50 mg tablet 50 mg PO Q8H PRN (Reason: pain) Qty: 7 0RF diazepam 2 mg tablet 2 mg PO BID PRN (Reason: anxiety) 1 Days Qty: 2 0RF Rx Instructions: Take medication after arrival at office Print Language: Kazakh
[2025-10-16 10:22] LABS: Appearance Urine Clear; Glucose Urine UA Negative (Negative); PH 5.5 (5.0-9.0); Specific Gravity - Urine >= 1.030 (1.005-1.025); UMIC TRIGGER UACC YES
[2025-10-16 10:46] VITALS: BP 139/88; PULSE 70; RESP 16; O2SAT 96
[2025-10-16 12:31] LABS: CT PCR Urine NOT DETECTED (Not Detect.); NG PCR Urine NOT DETECTED (Not Detect.)
--- OUTSIDE RECORDS SUMMARY | 2025-10-16 13:34 | XMS_ITS | Encounter Summary ---
Author Organization [facility] Address [address] [place] [address] Care Team Providers Care Issuer Name Role Phone Fab Holland PA-C Primary Care Provider Encounter Details Date Type Department Care Team (Late st Contact Info) Description 10/16/[address] [facility] [facility] [address] [place] [address] Social History Tobacco Use Types Packs/Day Years [...] on filedocumented in this encounter Care Teams Issuer Relationship Specialty Start Date End Date Fab Holland PA-C [address] [place] [address] PCP - General 10/16/22 documented as of this encounter
--- OUTSIDE RECORDS SUMMARY | 2025-10-16 13:34 | XMS_ITS | Clinical Summary ---
Author Organization [facility] Address [address] [place] [address] Care Team Providers Care Customer Accounts Advisor Name Role Phone Unavailable Primary Care Provider [...] Group Subscriber ID Effective Dates Phone Address [facility] [id number] 2022-Present 1 [facility] [address] [place] [phone] [place] [id number] Hal Aguilera Personal/Family Self 1980 [place] [id number]
--- OUTSIDE RECORDS SUMMARY | 2025-10-16 13:34 | XMS_ITS | Clinical Summary ---
Author Organization [facility] Address [address] [place] [address] Care Team Providers Care Boiler Tester Name Role Phone Pcp, No Primary Care [...] patient's age to complete this topic Insurance [facility] Care Teams Boiler Tester Relationship Specialty Start Date End Date Pcp, No PCP - General General Medicine 08/02/22
--- OUTSIDE RECORDS SUMMARY | 2025-10-16 13:34 | XMS_ITS | Clinical Summary ---
Author Organization [address] Address [address] [place], [place] [id number] Care Team Providers Care General Laborer Name Role Phone No, Pcp (Do Not [...] age to complete this topic Care Teams General Laborer Relationship Specialty Start Date End Date No, Pcp (Do Not Change Name) PCP - General 08/19/24
--- OUTSIDE RECORDS SUMMARY | 2025-10-16 13:34 | XMS_ITS | Clinical Summary ---
Author Organization [facility] Address [address] [place] [address] Care Team Providers Care Matcher Offbearer Name Role Phone Fab Holland PA-C Primary [...] this topic Insurance [employer] Care Teams Matcher Offbearer Relationship Specialty Start Date End Date Fab Holland PA-C [address] [place] [address] PCP - General 10/16/22
[2025-10-16 14:25] VITALS: BP 132/74; PULSE 70; RESP 14; O2SAT 97
[2025-10-16 14:34] VITALS: BP 132/74; PULSE 70; RESP 14; TEMP 36.8; O2SAT 97
== END 2025-10-16 14:34 | disposition home or self-care (01) ==
PROVIDERS: Registered Nurse Emergency; Emergency Provider Student in an Organized Health Care Education/Training Program; PCP Urology
DX: N43.3 Hydrocele, unspecified (principal)
CPT/HCPCS: 76870; 81001; 87491; 87591; 93975; 99284

== ENCOUNTER → 2025-10-16 10:02 | Outpatient (BNV) | payer OTHER, SELFPAY | PROVIDERS: Emergency Provider Student in an Organized Health Care Education/Training Program; PCP Urology; Visit Provider Radiology Diagnostic Radiology | DX: N50.3 Cyst of epididymis (principal); N43.3 Hydrocele, unspecified | CPT/HCPCS: 93975 ==

== ENCOUNTER 2025-10-18 15:13 | Outpatient (AMB) | payer OTHER, SELFPAY ==
--- NOTE | 2025-10-18 15:51 | MHC.OFFVIS ---
Intake Visit Reasons: hydrocele drainage Intake Note: Reason for Visit: Hydrocele Drainage Urology Meds: None Supervisor Grower Required: No Allergies No Known Allergies Allergy (Verified 10/18/25 15:53) HPI Comments Details: Hal is a very pleasant Palauan-speaking male. He is a patient of Dr. Mcgrath. He is seen for the following urologic condition - hydrocele Has symptomatic hydrocele right side Drainage performed in office today Plan for operative hydrocelectomy Right hydrocele Imaging - scrotal ultrasound right hydrocele [facility] Surgical History History of esophagogastroduodenoscopy (EGD) Social History Household Members: Spouse and Children Alcohol intake: never Patient Tobacco Use Status: Never used Tobacco Current occupational status: employed Office Procedures Procedure Thyroid Biopsy Procedural Documentation: PreOperative Diagnosis: Right hydrocele Post Operative Diagnosis: Right hydrocele Procedure: Drainage of hydrocele Surgeon: Dr Sylvester Ferris Anesthesia: Local Indications for procedure: Persistent hydrocele Procedure: Informed consent was verified and site confirmed The testicle was prepped using Betadine swab stick Testicle was elevated and 18 gauge Angiocath placed for drainage of hydrocele fluid One hundred forty cc of fluid removed Procedure tolerated CPT 13722 Assessment & Plan Assessment & Plan (1) Hydrocele in adult: Code(s): N43.3 - Hydrocele, unspecified Category: Medical Plan Risks, benefits and alternatives to therapy were discussed. These include but are not limited to infection, bleeding, damage to local organs and tissues, need for further interventions. Anesthetic risks regarding cardiac arrhythmia, blood clots, and potential mortality were discussed. The patient understands the typical recovery time and the outpatient nature of the procedure. After consideration of these risks the patient gives full informed consent and they wish to move ahead with the procedure. - right hydrocelectomy Patient Instructions: This note is constructed using voice recognition software. While every effort has been made to ensure accuracy outdoor emergency care technician errors may have been included. Imaging studies, laboratory and physical exam results were discussed and reviewed in detail. No major barriers to patient understanding were identified. An opportunity to ask questions regarding the treatment plan was provided. All questions were answered. The patient expressed understanding and agreement with the above treatment plan. The patient is aware they should contact our office by phone for worsening of their current condition or the appearance of new urologic symptoms. Compliance is encouraged with any medications and followup testing that is ordered. It is a privilege to participate in the urologic care of your patient. If you have any questions or concerns regarding treatment for the above conditions, or other urologic issues, please do not hesitate to contact me. The office telephone contact is [phone]. Sincerely, Dr Sylvester Ferris MD, [facility] - Urology Compassionate Specialist Care for the Genitourinary System Coding Level of Care Code Est Pt Level 3 (96451) Diagnoses Hydrocele in adult N43.3
--- OUTSIDE RECORDS SUMMARY | 2025-10-18 18:16 | XMS_ITS | Clinical Summary ---
Author Organization [facility] Prior to 04/15/25 Address [address] [place] [address] Care Team Providers Care Peer Specialist Name Role Phone Unavailable Primary Care [...] on patient's age to complete this topic [place] [id number] Hal Aguilera Personal/Family Self 1980 [place] [id number]
--- OUTSIDE RECORDS SUMMARY | 2025-10-18 18:16 | XMS_ITS | Encounter Summary ---
Author Organization [facility] Address [address] [place] [address] Care Team Providers Care Digital Marketer Name Role Phone Fab Holladn PA-C Primary Care Provider [phone] Encounter Details Date Type Department Care Team (Late st Contact Info) Description 10/16/2022 Procedure [facility] [address] [place] [address] Social History Tobacco Use Types Packs/Day Years [...] on filedocumented in this encounter Care Teams Digital Marketer Relationship Specialty Start Date End Date Fab Holland PA-C [address] [place] [address] PCP - General 10/16/22 documented as of this encounter
--- OUTSIDE RECORDS SUMMARY | 2025-10-18 18:16 | XMS_ITS | Clinical Summary ---
Author Organization [facility] Address [address] [place] [address] Care Team Providers Care Ivory Carver Name Role Phone Pcp, No Primary Care [...] age to complete this topic Insurance [facility] Care Teams Ivory Carver Relationship Specialty Start Date End Date Pcp, No PCP - General General Medicine 08/02/22
--- OUTSIDE RECORDS SUMMARY | 2025-10-18 18:16 | XMS_ITS | Clinical Summary ---
Author Organization [facility] Address [address] [place] [address] Care Team Providers Care Insurance Customer Service Specialist Name Role Phone Fab Holland PA-C Primary Care Provider [phone] Allergies No known active allergies Social History [...] this topic Insurance [employer] Care Teams Insurance Customer Service Specialist Relationship Specialty Start Date End Date Fab Holland PA-C [address] [place] [address] PCP - General 10/16/22
--- OUTSIDE RECORDS SUMMARY | 2025-10-18 18:16 | XMS_ITS | Clinical Summary ---
Author Organization [address] Address [address] [place], [place] [address] Care Team Providers Care Doping Supervisor Name Role Phone No, Pcp (Do Not [...] age to complete this topic Care Teams Doping Supervisor Relationship Specialty Start Date End Date No, Pcp (Do Not Change Name) PCP - General 08/19/24
== END 2025-10-18 16:27 | disposition home or self-care (01) ==
LOC: HO.HUSH 15:13
PROVIDERS: PCP Urology; Visit Provider Urology
DX: N43.3 Hydrocele, unspecified (principal)
CPT/HCPCS: 55000; 99213

== ENCOUNTER → 2025-10-18 15:13 | Outpatient (BNVA) | payer OTHER, SELFPAY | PROVIDERS: PCP Urology; Visit Provider Urology | DX: N43.3 Hydrocele, unspecified (principal) | CPT/HCPCS: 55000 ==

== ENCOUNTER 2025-11-14 07:25 | Day surgery (SDC) | payer OTHER, SELFPAY ==
--- OUTSIDE RECORDS SUMMARY | 2025-11-03 11:57 | XMS_ITS | Clinical Summary ---
Author Organization [facility] Address [address] [place] [address] Care Team Providers Care Digital Performance Analyst Name Role Phone Pcp, No Primary Care [...] Influenza Vaccine 06/16/2025 COVID-19 Vaccine (1 - 2024-2 6 season) 2025 DTaP/Tdap/Td Vaccines (2 - T d or Tdap) 08/02/2032 08/02/2022 Pneumococcal Vaccine: Pediat abby (0-5 Years) and At-Risk Patients (6 to 49 Years) Aged Out No longer eligible b ased on patient's age to complete this topic Insurance [facility] Care Teams Digital Performance Analyst Relationship Specialty Start Date End Date Pcp, No PCP - General General Medicine 08/02/22
--- OUTSIDE RECORDS SUMMARY | 2025-11-03 11:58 | XMS_ITS | Clinical Summary ---
Author Organization [facility] Prior to 04/15/25 Address [address] [place] [address] Care Team Providers Care Surg Physician Asst Name Role Phone Unavailable Primary Care Provider [...] patient's age to complete this topic [place] [id number] Hal Aguilera Personal/Family Self 1980 [place] [id number]
--- OUTSIDE RECORDS SUMMARY | 2025-11-03 11:58 | XMS_ITS | Clinical Summary ---
Author Organization [facility] Address [address] [place] [address] Phone Care Team Providers Care Carbon Paper Machine Operator Name Role Phone Viviana Mcgrath MD Primary Care Provider [phone] Allergies No known active allergies Medications oxyCODONE-aceta minophen (PERCOCET) 5-325 mg per tablet Take 1 tablet by mouth every 6 (six) hours if needed for severe pain for up to 3 days. Max Daily Amount: 4 tablets 12 tablet 5 10/14/20 25 ketorolac (TORADOL) 10 mg tablet Take 1 tablet (10 mg total) by mouth every 6 (six) hours if needed for moderate pain for up to 5 days. 20 tablet 5 10/18/20 25 Encounters Date Type Department Care Team Description 10/13/2025 4:19 PM EST - 10/13/2025 7:05 PM [facility] Emergency [address] [place] [address] Marta Bloom MD Right hydrocele (Primary Dx) Discharge Disposition: Home or Self Care 10/11/2025 5:24 PM EST - 10/11/2025 8:10 PM [facility] Emergency [facility] Emergency [address] [place] [address] Boaz Claros DO Other hydrocele (Primary Dx) Discharge Disposition: Home or Self Care from Last 3 Months Medical History Medical History Date Comments Epigastric [...] PM EDT Sexual Orientation Not on file Last Filed Vital Signs Vital Sign Reading Time Taken Comments Blood Pressure 151/101 10/13/2025 4:20 PM EST Pulse 74 10/13/2025 4:20 PM EST Temperature 36.9 C (98.4 F) 10/13/2025 4:20 PM EST Respiratory Rate 18 10/13/2025 4:20 PM EST Oxygen Saturation 97% 10/13/2025 4:20 PM EST Inhaled Oxygen Concentration - - Weight 70.3 kg (155 lb) 10/13/2025 4:20 PM EST Height 175.3 cm (5' 9 ) 10/13/2025 4:20 PM EST Body Mass Index 22.89 10/13/2025 4:20 PM EST Plan of Treatment Health Maintenance Due Date Last Done Comments Colorectal Cancer Screening: Colonoscopy 1979 Hepatitis B Vaccines (1 of 3 - 19+ 3-dose series) 1998 Cholesterol Screening (Lipid Panel) 10/19/2022 HIV Screening 10/19/2022 Hepatitis C Screening 10/19/2022 Social Influencers of Health Screening 10/19/2022 Depression Screening 11/16/2024 COVID-19 Vaccine ( - 2024-2 6 season) 2025 Influenza Vaccine (#1) 2025 DTaP,Tdap,and [...] Procedure Name Priority Date/Time Associated Diagnosis Comments URINALYSIS WITH REFLEX MICROSCOPIC STAT 10/13/2025 5:07 PM EST URINALYSIS WITH REFLEX MICROSCOPIC STAT 10/13/2025 5:07 PM EST [place] URINE CULTURE TUBE Routine 10/13/2025 5:05 PM EST EXTRA TUBES Routine 10/13/2025 5:05 PM EST US SCROTUM AND CONTENTS STAT 10/13/2025 3:42 PM EST US SCROTUM AND CONTENTS STAT 10/11/2025 6:14 PM EST URINALYSIS MICROSCOPIC ONLY STAT 10/11/2025 5:33 PM EST URINALYSIS WITH REFLEX MICROSCOPIC STAT 10/11/2025 5:33 PM EST URINALYSIS WITH REFLEX MICROSCOPIC STAT 10/11/2025 5:33 PM EST from Last 3 Months Results * (ABNORMAL) Urinalysis with reflex microscopic (10/13/2025 5:07 PM EST) Only the most recent of2 resultswithin the time period is included. Specific [place] Urine 1.033(H) 1.003 - 1.030 LAB URINALYSIS - AUTOMATED METHOD 10/13/2025 5:44 PM [facility] pH, Urine 5.5 5.0 - 8.0 pH LAB URINALYSIS - AUTOMATED METHOD 10/13/2025 5:44 PM [facility] Leukocytes, Urine Negative Negative LAB URINALYSIS - AUTOMATED METHOD 10/13/2025 5:44 PM [facility] Nitrite, Urine Negative Negative LAB URINALYSIS - AUTOMATED METHOD 10/13/2025 5:44 PM [facility] Protein, Urine Trace <=Trace mg/dL LAB URINALYSIS - AUTOMATED METHOD 10/13/2025 5:44 PM [facility] Glucose, Urine Negative Negative mg/dL LAB URINALYSIS - AUTOMATED METHOD 10/13/2025 5:44 PM [facility] Ketones, Urine Trace(A) Negative mg/dL LAB URINALYSIS - AUTOMATED METHOD 10/13/2025 5:44 PM [facility] Urobilinogen, Urine 1.0 0.2 - 1.0 mg/dL LAB URINALYSIS - AUTOMATED METHOD 10/13/2025 5:44 PM [facility] Bilirubin, Urine Negative Negative LAB URINALYSIS - AUTOMATED METHOD 10/13/2025 5:44 PM [facility] Blood, Urine Negative Negative LAB URINALYSIS - AUTOMATED METHOD 10/13/2025 5:44 PM [facility] Urine Urine specimen obtained by clean catch procedure / Unknown Non-blood Collection / Unknown 10/13/2025 5:07 PM EST 10/13/2025 5:37 PM EST us Rajeev ANDERSON LAB URINE ORDERABLES Final Result [facility] [address] [place] [address], [place] [phone] * [place] urine culture tube (10/13/2025 5:05 PM EST) Extra Tube Hold for add-ons. 10/13/2025 7:02 PM EST [facility] Comment:Auto resulted. Urine Urine specimen obtained by clean catch procedure / Unknown Non-blood Collection / Unknown 10/13/2025 5:05 PM EST 10/13/2025 5:39 PM EST Marta Bloom MD LAB URINE ORDERABLES Final R esult [facility] [address] [place] [address], [place] [phone] * US Scrotum and Contents (10/13/2025 3:42 PM EST) Only the most recent of2 resultswithin the time period is included. Anatomical Region Laterality Modality Body Ultrasound 10/13/2025 4:13 PM EST Impressions 10/13/2025 4:16 PM EST Impression: 1. Large right hydrocele. 2. No testicular masses. 3. No evidence of testicular torsion. Telesindi ANDERSON ([id number]) -------- FINAL REPORT -------- Dictated By: Loly Loving Dictated Date: 10/13/2025 16:13 ET Assigned Physician: Loly Loving Reviewed and Electronically Signed By: Loly Loving Signed Date: 10/13/2025 16:16 ET Workstation ID: [id number] Transcribed By: Self Edit Transcribed Date: 10/13/2025 16:13 ET Narrative 10/13/2025 4:16 PM EST History: Right-sided scrotal pain. Status post vasectomy 2 months ago. Per patient, he had right scrotal drainage procedure following vasectomy for pain and pressure. Feeling similar now. Comparison: No comparison imaging at this institution. Findings: High resolution real-time imaging of the scrotal contents was performed. The testes are normal in echotexture and size, measuring 4.7 x 2.7 x 3.7 cm on the right and 4.6 x 2.4 x 3.9 cm on the left. No testicular masses are identified. Intratesticular blood flow is symmetric and normal by Doppler analysis. An appendix testis is incidentally noted on the right, an anatomic variant. The epididymis is are unremarkable. A large right hydrocele is noted, with punctate foci of mobile debris. No septations are seen. No mural nodules are identified. Procedure Note Loly Loving MD - 10/13/2025 History: Right-sided scrotal pain. Status post vasectomy 2 months ago. Perpatient, he had right scrotal drainage procedure following vasectomy forpain and pressure. Feeling similar now. Comparison: No comparison imaging at this institution. Findings: High resolution real-time imaging of the scrotal contents was performed. The testes are normal in echotexture and size, measuring 4.7 x 2.7 x 3.7cm on the right and 4.6 x 2.4 x 3.9 cm on the left. No testicular massesare identified. Intratesticular blood flow is symmetric and normal byDoppler analysis. An appendix testis is incidentally noted on the right,an anatomic variant. The epididymis is are unremarkable. A large right hydrocele is noted, with punctate foci of mobile debris. Noseptations are seen. No mural nodules are identified. IMPRESSION: Impression: 1. Large right hydrocele. 2. No testicular masses. 3. No evidence of testicular torsion. CampEasysindi ANDERSON ([id number]) -------- FINAL REPORT -------- Dictated By: Loly Loving Dictated Date: 10/13/2025 16:13 ET Assigned Physician: Loly Loving Reviewed and Electronically Signed By: Loly Loving Signed Date: 10/13/2025 16:16 ET Workstation ID: [id number] Transcribed By: Self Edit Transcribed Date: 10/13/2025 16:13 ET us Rajeev ANDERSON [facility] [place]ED[place] Final Res ult * Urinalysis microscopic only (10/11/2025 5:33 PM EST) RBC, Urine 3 0 - 3 /HPF 10/11/2025 6:03 PM EST [facility] WBC, Urine 1 0 - 5 /HPF 10/11/2025 6:03 PM EST [facility] Urine Urine specimen obtained by clean catch procedure / Unknown Non-blood Collection / Unknown 10/11/2025 5:33 PM EST 10/11/2025 5:35 PM EST us Boaz Claros DO LAB URINE ORDERABLES Final Re sult [facility] [place] Reg. #:[id number] [address] [place] [address], from Last 3 Months Insurance [facility] [address] [place] [address] Care Teams Carbon Paper Machine Operator Relationship Specialty Start Date End Date Viviana Mcgrath MD [address] [place] [address] [place] [address] PCP - General 11/03/23
--- OUTSIDE RECORDS SUMMARY | 2025-11-03 11:58 | XMS_ITS | Clinical Summary ---
Author Organization [facility] Address [address] [place] [address] Care Team Providers Care Mobile Architect Name Role Phone Fab Holland PA-C Primary Care Provider [phone] Allergies No known active allergies Social History [...] this topic Insurance [employer] Care Teams Mobile Architect Relationship Specialty Start Date End Date Fab Holland PA-C [address] [place] [address] PCP - General 10/16/22
--- OUTSIDE RECORDS SUMMARY | 2025-11-03 11:58 | XMS_ITS | Clinical Summary ---
Author Organization [address] Address [address] [place], [place] [id number] Care Team Providers Care Art Manager Name Role Phone No, Pcp (Do Not [...] age to complete this topic Care Teams Art Manager Relationship Specialty Start Date End Date No, Pcp (Do Not Change Name) PCP - General 08/19/24
--- OUTSIDE RECORDS SUMMARY | 2025-11-03 11:58 | XMS_ITS | Encounter Summary ---
Author Organization [employer] Address [address] [place] [address] Care Team Providers Care Hose Wrapper Name Role Phone Fab Holland PA-C Primary Care Provider Encounter Details Date Type Department Care Team (Late st Contact Info) Description 10/16/2022 [facility] [address] [place] [id number] Social History Tobacco Use Types Packs/Day Years [...] on filedocumented in this encounter Care Teams Hose Wrapper Relationship Specialty Start Date End Date Fab Holland PA-C [address] [place] [address] PCP - General 10/16/22 documented as of this encounter
--- NOTE | 2025-11-08 08:40 | P.CONAN_ITS ---
Documented by User: Dione Storey NP 11/08/25 09:27 HPI - Anesthesia Eval Consult details Narrative: 45 yr old male for hydrocele repair PMFSH Active Problems Active Problems: All Active Problems (Updated 10/22/25 @ 19:56 by Sylvester Ferris MD) Hydrocele in adult (Acute) Anxiety about health (Acute) Abdominal pain (Acute) Encounter for screening colonoscopy (Acute) Poor historian (Acute) Heartburn (Acute) LUQ abdominal pain (Acute) Past Medical History Medical History HTN (hypertension) Anxiety GERD (gastroesophageal reflux disease) Surgical History Surgical History Hx of colonoscopy History of esophagogastroduodenoscopy (EGD) Social History Social History Household Members: Spouse and Children Alcohol intake: never Patient Tobacco Use Status: Never used Tobacco Have you been hit, kicked, punched, or otherwise hurt by someone within the past year? If so, by whom?: No Are you DNR?: No Advance Directives: No Advance Directives Information Provided: Yes Current occupational status: employed Meds Allergies Allergy/AdvReac Type Severity Reaction Status Date / Time No Known Allergies Allergy Verified 10/18/25 15:53 Home Medications ?Medication ?Instructions ?Recorded ?Confirmed ?Last Taken ?Type amlodipine 5 mg tablet 5 mg PO DAILY 11/14/2511/1411/13/25 History Exam Narrative Narrative: EKG Component Ref Range & Units02/06/25 1803Ventricular Rate ECG [id number] Rate [id number] Interval [id number] Duration [id number]-B Interval [id number] cs642L Wave [place] [id number] [place] [id number] [place] [id number] Interpretation Normal sinus rhythm Normal ECG No previous ECGs available Confirmed by Machelle Santizo ([id number]) on 02/10/2025 10:19:50 AM Assessment and Plan Assessment Anesthesia Assessment: Chart Reviewed Documented by User: Manjinder Sky MD 11/14/25 08:30 [facility] Past Medical History Medical History HTN (hypertension) Anxiety GERD (gastroesophageal reflux disease) Functional capacity: independent ambulation Family History Family history of problems with anesthesia: No Surgical History Surgical History Hx of colonoscopy History of esophagogastroduodenoscopy (EGD) History of Problems with Anesthesia: No Social History Social History Household Members: Spouse and Children Alcohol intake: never Patient Tobacco Use Status: Never used Tobacco Have you been hit, kicked, punched, or otherwise hurt by someone within the past year? If so, by whom?: No Are you DNR?: No Advance Directives: No Advance Directives Information Provided: Yes Current occupational status: employed Meds Allergies Allergy/AdvReac Type Severity Reaction Status Date / Time No Known Allergies Allergy Verified 10/18/25 15:53 Home Medications ?Medication ?Instructions ?Recorded ?Confirmed ?Last Taken ?Type amlodipine 5 mg tablet 5 mg PO DAILY 11/14/2511/1411/13/25 History Exam Exam Date and Time: 11/14/25 Airway TM Dist: >3cm Neck ROM: Full Heart: ok Lungs: ok Other: ok Assessment and Plan Assessment Anesthesia Assessment: Anesthesia Plan Discussed Final Anesthetic Review Family History of Problems with Anesthesia: No History of Problems with Anesthesia: No NPO: Yes ASA Class: II and III Final Preanesthetic Review: No Changes in Pt Med Stat, Meds/Allgs Chart Reviewed, Consent Obtained/Reviewed and Anes Risks/Benef Reviewed Patient Risk: Low Procedure Risk: Low Anesthetic Plan Anesthetic Plan: GA Disposition: Standard PACU
[2025-11-13 14:43] VITALS: BMI 24.2
[2025-11-14] VITALS (11 sets, daily range): BP systolic 130–169; BP diastolic 81–111; PULSE 70–97; RESP 10–20; TEMP 35.5–36.4; O2SAT 94–97; BMI 24.7
[2025-11-14] MEDS: Lactated Ringers 1,000 ML 100 ML IVCONT (08:46)
--- NOTE | 2025-11-14 08:46 | MHC.SHP ---
Pre-Procedural Eval Section A - 24 Hr Update-Section A only Date of Service: 11/14/25 The patient is an INPATIENT: No The patient has been examined within 24 hours of the surgical procedure. The History & Physical has been completed within 30 days and I have reviewed it.: Yes Section B - Complete if H&P > 30 days Chief Complaint: Hydrocele, unspecified Allergies: Allergies Allergy/AdvReac Type Severity Reaction Status Date / Time No Known Allergies Allergy Verified 10/18/25 15:53 Plan Diagnosis/Plan: Unchanged I have reviewed the history and physical and performed a pertinent physical examination on my patient. No changes have occurred unless specified. Right Hydrocele excision. Time Spent With Patient Time: Total time managing care of this patient today ____ minutes.
--- NOTE | 2025-11-14 08:46 | W.PM.OPN ---
Operative Note Operative Note Date of Service: 11/14/25 Narrative: PreOperative Diagnosis:? ? Right hydrocele Post Operative Diagnosis: Right hydrocele Procedure: Right hydrocelectomy Surgeon:?Dr Christelle Morales Anesthesia:? General Procedure: After informed consent was verified the patient was brought to the operating room and placed in a supine position.? Anesthesia was performed per protocol. The patient was prepped and draped in the usual sterile fashion. Safety pause time-out was performed. Antibiotics confirmed. A marker was used to norris the median raphe. Attention was taken to the right hemiscrotum A horizontal incision was made through the skin with a 15 blade knife, cautery was used to incise the dartos fascia, the plane between the dartos fascia and the tunical vaginalis was developed with blunt dissection. the testicle is delivered into the operative field. The gubernaclar attachments are taken down with electrocautery. The tunica vaginalis was opened with sharp dissection vertically in the midline, the hydrocele fluid is drained and suctioned, approximately 100 mL the hydrocele fluid was clear yellow, minimal fluid was sent for pathology. The hydrocele sac was opened in the midline. The tunica vaginalis was wrapped posteriorly and the edges were oversewn with 3-0 chromic. Cautery was used for hemostasis. The dartos fascia was closed with running locking 3-0 chromic and the skin was closed with interrupted 3-0 chromic there was good hemostasis noted. The patient tolerated the procedure well and was transferred to the recovery area upon completion. Complications: None EBL: minimal (<5 mL) Drains: None
[2025-11-14] MEDS: oxyCODONE HCl Immed Release 5 MG TABLET PO (11:04)
--- NOTE | 2025-11-14 11:58 | PC.NURSE ---
DR. SONNY PLUNKETT CAME OUT TO SPEAK WITH PATIENT PATIENT REQUIRED 2 PERSON ASSIST TO AMBULATE TO BATHROOM. DR. SONNY PLUNKETT STATED THE PATIENT DID NOT NEED A WALKER. ICE PACKS GIVEN TO PATIENT. DR. SONNY PLUNKETT ALSO STATED THE PATIENT SHOULD HAVE TYLENOL EXTRA STRENGTH (2 500 mg tablets every 12 hours) FOR THE NEXT 12 TO 14 DAYS). patient also has prescription for 0xycodone.
== END 2025-11-14 12:45 | disposition home or self-care (01) ==
PROVIDERS: PCP Internal Medicine; Visit Provider Urology
PROC: (CPT 55060; principal; 2025-11-14 08:40)
DX: N43.3 Hydrocele, unspecified (principal); N44.03 Torsion of appendix testis; I10 Essential (primary) hypertension; K21.9 Gastro-esophageal reflux disease without esophagitis; F41.9 Anxiety disorder, unspecified; Z79.899 Other long term (current) drug therapy
CPT/HCPCS: 55040; 88112; 88304; 88305; J0131; J0690; J1100; J1885; J2003; J2405; J2704; J2765; J2795; J3010

== ENCOUNTER → 2025-11-14 07:25 | Outpatient (BNV) | payer OTHER, SELFPAY | PROVIDERS: PCP Internal Medicine; Visit Provider Urology | DX: N43.3 Hydrocele, unspecified (principal) | CPT/HCPCS: 55040 ==